=== PATIENT | female | born 1965 | race Asian ===

== ENCOUNTER 2020-10-19 14:14 | Emergency (ER) | payer OTHER ==
[2020-12-22] MEDS ORDERED: ACETAMIN500 M2 PO (12:54)
== END 2020-10-19 14:22 | disposition left against medical advice (07) | DRG 951 ==
LOC: ED 14:14 → LWOBS 14:22
DX: Z91.19 Patient's noncompliance with other medical treatment and regimen (principal)

== ENCOUNTER 2020-12-23 08:10 | Day surgery (SDC) | payer OTHER ==
[~2020-12-23] VITALS: Ht 165.1 cm; Wt 59.0 kg
[~2020-12-23 08:10] MED LIST: ACETAMIN500 M2 PO
[2020-12-23 10:27] VITALS: BP 143/75
== END 2020-12-23 10:48 | disposition home or self-care (01) | DRG 951 ==
LOC: ENDO 08:10
PROVIDERS: ATTEND Surgery
PROC: 0DJD8ZZ Inspection of Lower Intestinal Tract, Via Natural or Artificial Opening Endoscopic (ICD-10-PCS; principal; 2020-12-23)
DX: Z12.11 Encounter for screening for malignant neoplasm of colon (principal); K64.8 Other hemorrhoids

== ENCOUNTER 2022-01-01 09:50 | Emergency (ER) | payer OTHER ==
[~2022-01-01] VITALS: Ht 165.1 cm; Wt 55.0 kg
[2022-01-01] VITALS (11 sets, daily range): BP systolic 128–153; BP diastolic 71–87
[2022-01-01 10:34] LABS: URINE BILIRUBIN - DIPSTICK NEGATIVE (NEGATIVE); URINE BLOOD DIPSTICK NEGATIVE (NEGATIVE); URINE COLOR YELLOW; URINE GLUCOSE - DIPSTICK NEGATIVE (NEGATIVE); URINE KETONE NEGATIVE (NEGATIVE); URINE LEUK ESTERASE NEGATIVE (NEGATIVE); URINE PH 7.5 (4.5-8.0); URINE PROTEIN - DIPSTICK NEGATIVE (NEG-TRACE); URINE UROBILINOGEN - DIPSTICK 0.2 E.U./dL (0.2)
[2022-01-01 10:34] LABS: HEMATOCRIT 38.9 % (37.0-47.0); HEMOGLOBIN 12.2 g/dl (12.0-16.0); MEAN CELL VOLUME 94.6 fL CALC (80.0-100.0); MEAN CORPUSCULAR HGB 29.7 pG CALC (26.0-32.0); MEAN CORPUSCULAR HGB CONC 31.4 g/dL CAL (32.0-36.0); NEUT# 3.94 thou/uL (2.00-7.15); RED BLOOD COUNT 4.11 mill/uL (4.20-5.60); RED CELL DISTRI WIDTH 12.7 % (11.5-15.5)
[2022-01-01 10:35] LABS: URINE NITRITE - DIPSTICK NEGATIVE (Negative)
[2022-01-01 10:54] LABS: ALBUMIN 4.1 g/dL (3.2-5.0); ALKALINE PHOSPHATASE 67 u/l (38-126); ANION GAP 11 (6-22 (CALC)); BILIRUBIN, TOTAL 0.5 mg/dL (0.0-1.4); BUN 18 mg/dL (7-17); BUN/CREATININE RATIO 26 (12-20 (CALC)); CARBON DIOXIDE 26 mmol/l (22-30); CHLORIDE 110 mmol/l (95-108); CREATININE 0.7 mg/dL (0.5-1.0); GFR FOR AFR.AMER. > 60 ML/MIN (>=60 (CALC)); GFR OTHER RACES > 60 ML/MIN (>=60 (CALC)); LIPASE 73 u/l (23-300); POTASSIUM 4.2 mmol/l (3.5-5.1); SGOT/AST 22 u/l (14-36); SODIUM 142 mmol/l (137-146); TOTAL PROTEIN 6.7 g/dL (6.3-8.2)
== END 2022-01-01 13:23 | disposition home or self-care (01) | DRG 392 ==
LOC: ED 09:50
PROVIDERS: Internal Medicine
DX: R10.31 Right lower quadrant pain (principal); R16.0 Hepatomegaly, not elsewhere classified
CPT/HCPCS: Q9967

== ENCOUNTER 2022-12-07 06:50 | Emergency (ER) | payer OTHER ==
[~2022-12-07] VITALS: Ht 165.1 cm; Wt 54.4 kg
[2022-12-07 07:00] VITALS: BP 142/78
[2022-12-07] MEDS ORDERED: ATORVASTATIN CA20 MG PO (07:11)
[2022-12-07] MEDS ORDERED: NAPROXEN500 MG PO (09:32)
[2022-12-07 09:41] VITALS: BP 147/74
[2022-12-08] MEDS ORDERED: NAPROXEN500 MG PO (11:05)
== END 2022-12-07 09:45 | disposition home or self-care (01) | DRG 556 ==
LOC: ED 06:50
DX: M25.512 Pain in left shoulder (principal)

== ENCOUNTER 2024-02-05 19:37 | Emergency (ER) | payer SELFPAY ==
[~2024-02-05] VITALS: Ht 165.1 cm; Wt 55.0 kg
[~2024-02-05 19:37] MED LIST changes: +ATORVASTATIN CA20 MG PO; +MEDI-MECLIZINE25 MG PO; +NAPROXEN500 MG PO; +ZOFRAN4 MG/TAB PO
[2024-02-05 20:01] VITALS: BP 185/90
[2024-02-05 20:15] VITALS: BP 168/86
[2024-02-05 20:21] LABS: URINE BILIRUBIN - DIPSTICK Negative (NEGATIVE); URINE BLOOD DIPSTICK Moderate (NEGATIVE); URINE GLUCOSE - DIPSTICK Negative (NEGATIVE); URINE KETONE Negative (NEGATIVE); URINE LEUK ESTERASE Large (NEGATIVE); URINE NITRITE - DIPSTICK Negative (Negative); URINE PROTEIN - DIPSTICK Negative (NEG-TRACE); URINE SPECIFIC GRAVITY <=1.005; URINE UROBILINOGEN - DIPSTICK 0.2 E.U./dL (0.2)
[2024-02-05 20:22] LABS: URINE COLOR Straw
[2024-02-05 20:28] LABS: URINE BACTERIA MANY hpf; URINE WBC >100 WBC/hpf (0-5)
[2024-02-05 20:30] VITALS: BP 162/79
[2024-02-05] MEDS ORDERED: BACTRIM DS1 TAB PO ×2 (20:37→21:26)
[2024-02-05] MEDS ORDERED: SULFAMETHOXAZOLE W/TRIMETHOPRI 1 COMBO TAB PO ONE (20:40)
[2024-02-05] MEDS ORDERED: PHENAZOPYRIDINE HCL 100 MG/TAB PO ONE (20:40)
[2024-02-05 20:46] VITALS: BP 160/59
== END 2024-02-05 20:52 | disposition home or self-care (01) | DRG 690 ==
LOC: ED 19:37
PROVIDERS: Family Medicine
DX: N30.00 Acute cystitis without hematuria (principal); B96.20 Unspecified Escherichia coli [E. coli] as the cause of diseases classified elsewhere